=== PATIENT | female | born 1950 | race Caucasian/White ===

== ENCOUNTER 2021-07-08 09:43 | Outpatient (CLI) | payer MEDICARE ==
[2021-07-08 20:34] LABS: SARS-CoV-2 PCR by NAA Not Detected (NotDetected)
== END 2021-07-08 09:44 | disposition home or self-care (01) ==
LOC: LABBT 09:43
PROVIDERS: ATTEND Orthopaedic Surgery
DX: S52.502A Unspecified fracture of the lower end of left radius, initial encounter for closed fracture (principal); Z20.822 Contact with and (suspected) exposure to COVID-19
CPT/HCPCS: U0003; U0005

== ENCOUNTER 2021-07-09 10:18 | Day surgery (SDC) | payer OTHER, MEDICARE ==
[2021-07-08 11:02] VITALS: BMI 23.8
[2021-07-09] MEDS ORDERED: Fentanyl 100 MCG/2 ML VIAL ONE (11:47)
[2021-07-09] MEDS ORDERED: fentaNYL Citrate/PF 100 MCG/2 ML SYRINGE ONE (11:48)
[2021-07-09] MEDS ORDERED: Sodium Chloride 0.9% 100 ML ONE (12:25)
[2021-07-09] MEDS ORDERED: CEFAZOLIN 2 GM VIAL ONE (12:25)
[2021-07-09] MEDS ORDERED: Lidocaine 1% PF 5 ML VIAL ONE (12:58)
[2021-07-09] MEDS ORDERED: Dexamethasone 20 MG/5 ML VIAL ONE (12:58)
[2021-07-09] MEDS ORDERED: PROPOFOL 200 MG/20 ML VIAL ONE (12:58)
[2021-07-09] MEDS ORDERED: Ondansetron PF 4 MG/2 ML Vial ONE (12:58)
[2021-07-09] MEDS ORDERED: Ropivacaine 0.5% HCl/PF (150 MG/30 ML VIAL) ONE (12:58)
[2021-07-09] MEDS ORDERED: Artificial Tear Sol 15 ML BOT EA EYE PRN (15:14)
== END 2021-07-09 16:00 | disposition home or self-care (01) ==
LOC: SDC 10:18
PROVIDERS: ATTEND Orthopaedic Surgery
PROC: 0PSJ04Z Reposition Left Radius with Internal Fixation Device, Open Approach (ICD-10-PCS; principal; 2021-07-09)
DX: S52.532A Colles' fracture of left radius, initial encounter for closed fracture (principal); Z88.5 Allergy status to narcotic agent; W01.0XXA Fall on same level from slipping, tripping and stumbling without subsequent striking against object, initial encounter
CPT/HCPCS: 25607; 73100; 76000; C1713 ×2; C1776; J1100; J2405; J2704; J2795; J3010; J3490